=== PATIENT | female | born 2000 | race Two or more races ===

== ENCOUNTER 2024-08-09 15:31 | Emergency (ER) | payer OTHER ==
[~2024-08-09] VITALS: Ht 160 cm; Wt 54.4 kg
[2024-08-09] MEDS ORDERED: LEVALBUTEROL HCL 0.63 MG/3 ML SOLUTION IH ONE (16:15)
[2024-08-09] MEDS ORDERED: ACETAMINOPHEN 325 MG TABLET PO ONE (16:15)
[2024-08-09] MEDS ORDERED: FAMOtidine 10 MG/ML (4ML VIAL) IV ONE (16:15)
[2024-08-09] MEDS ORDERED: 0.9 % SODIUM CHLORIDE 1,000 ML IV ONE (16:15)
[2024-08-09] MEDS ORDERED: METHYLPREDNISOLONE SOD SUCC 40 MG VIAL IV ONE (16:15)
[2024-08-09 16:58] LABS: ABG PH 7.494 (7.35-7.45); ABG PO2 142.2 mmHg (80-100); ABG pCO2 26.1 mmHg (35-45); BASE EXCESS -1.9 mmol/l; BICARBONATE 19.6 mmol/l (23-25); SaO2 99.4 %; Tco2 20.4 mmol/l
[2024-08-09 17:04] LABS: HEMATOCRIT 39.6 % (36.0-45.00); HEMOGLOBIN 13.6 g/dL (12.0-15.00); MEAN CELL VOLUME 91.1 fL (80.00-100.00); MEAN CORPUSCULAR HEMOGLOBIN 31.3 pg (27.00-32.0); MEAN CORPUSCULAR HGB CONC 34.4 g/dl (32.0-36.0); PLATELET COUNT 219 K/uL (150-450); RED BLOOD COUNT 4.35 M/uL (4.00-6.00); RED CELL DISTRIBUTION WIDTH 12.3 % (11.5-14.5)
[2024-08-09 17:31] LABS: INR 1.03; PROTHROMBIN TIME 11.2 SECONDS (9.0-11.5)
[2024-08-09 17:41] LABS: URINE APPEARANCE Clear; URINE BILIRRUBIN Negative (NEGATIVE); URINE BLOOD Trace; URINE COLOR Yellow; URINE GLUCOSE Negative (NEGATIVE); URINE LEUKOCYTE Negative; URINE NITRATE Negative; URINE PROTEIN Negative (NEGATIVE); URINE UROBILINOGEN 0.2 E.U./dl
[2024-08-09 17:42] LABS: URINE BACTERIA 158.7 uL (0.0-1933); URINE RBC 2.5 uL (0.0-20.8); URINE WBC 4.9 uL (0.0-23.2)
[2024-08-09 17:45] LABS: ALBUMIN 4.9 gm/dL (3.4-5.0); ALKALINE PHOSPHATASE 50 U/L (50-136); ALT/SGPT 20 U/L (12-78); ANION GAP 15 (10.0-20.0); AST/SGOT 17 U/L (15-37); BILIRUBIN TOTAL 1.08 mg/dL (0.3-1.2); BLOOD UREA NITROGEN 12 mg/dL (7-18); BUN CREA RATIO 15 (7.0-25.0); CALCIUM 10.4 mg/dL (8.5-10.1); CARBON DIOXIDE 25 mEq/L (21-32); CHLORIDE 103 mmol/L (98-107); CREATININE SERUM 0.79 mg/dL (0.55-1.02); GLOBULINA 3.8 G/DL (2.4-3.5); GLUCOSE FASTING 89 mg/dL (65-100); OSMOLALITY SERUM 277 MOSM/KG (275-295); POTASSIUM 4.15 mEq/L (3.5-5.1); SODIUM 139 mmol/L (136-145); TOTAL PROTEIN 8.7 gm/dL (6.4-8.2)
[2024-08-09 17:45] LABS: allen test SATISFACTORY; o2 28 %; puncture site RADIAL RIGHT
[2024-08-09] MEDS ORDERED: 0.9 % SODIUM CHLORIDE 1,000 ML IV SCH (17:45)
[2024-08-09 17:53] LABS: HCG QUANTITATIVE < 1 mUI/mL (1-3)
[2024-08-09 18:38] LABS: URINE KETONE 40 (NEGATIVE)
[2024-08-09] MEDS ORDERED: BENZONATATE 100 MG CAPSULE PO ONE (19:45)
[2024-08-09] MEDS ORDERED: LEVALBUTEROL HCL 1.25 MG/3 ML SOLUTION IH ONE ×2 (19:45→20:45)
[2024-08-09] MEDS ORDERED: IPRATROPIUM BROMIDE 0.5 MG/2.5 ML AMPUL.NEB IH ONE (21:15)
[2024-08-09] MEDS ORDERED: MAGNESIUM SULFATE IN WATER 2 GM/50 ML PIGGYBAG IV ONE (21:15)
[2024-08-09] MEDS ORDERED: LEVALBUTER0.63 MG/3 IH (22:50)
[2024-08-09] MEDS ORDERED: ATROVENT HFA12.9 GM IH (22:50)
[2024-08-09] MEDS ORDERED: MEDROLPACK PO (22:50)
== END 2024-08-09 22:59 | disposition home or self-care (01) ==
LOC: ER 15:32
PROVIDERS: General Practice
DX: J45.901 Unspecified asthma with (acute) exacerbation (principal)